=== PATIENT | male | born 1960 | race African-American/Black ===

== ENCOUNTER 2025-05-31 01:05 | Emergency (ER) | payer OTHER ==
[2025-05-31] MEDS ORDERED: diphenhydrAMINE 50 MG/ML VIAL ONE (02:02)
[2025-05-31] MEDS ORDERED: Metoclopramide HCl 10 MG (2 mL) VIAL ONE (02:03)
[2025-05-31 02:08] LABS: #Basophils 0.08 10x3/uL (0.0-0.2); #Eosinophils 0.37 10x3/uL (0.0-0.5); #Monocytes 0.91 10x3/uL (0.0-1.1); #Neutrophils 6.28 10x3/uL (1.5-8.4); %Basophils 0.7 % (0.0-2.0); %Eosinophils 3.4 % (0.0-6.0); %Lymphocytes 28.7 % (18.0-47.0); %Monocytes 8.5 % (0.0-10.0); %Neutrophils 58.5 % (40.0-75.0); Hematocrit 40.2 % (38.8-50.0); Hemoglobin 14.3 g/dL (13.5-17.5); Mean Corpuscular Hemoglobin 30.6 pg (27.0-33.0); Mean Corpuscular Volume 85.9 fL (81.2-95.1); Platelet Count 210 10x3/uL (150-450); Red Blood Cell (RBC) Count 4.68 10x6/uL (4.32-5.72); White Blood Cell (WBC) Count 10.74 10x3/uL (3.5-10.5)
[2025-05-31 02:30] LABS: ALT (SGPT) 18 U/L (Less than 45); AST (SGOT) 23 U/L (11-34); Albumin 4.2 g/dL (3.1-4.5); Alkaline Phosphatase 65 U/L (40-110); Anion Gap 12 mmol/L (10-20); BUN (Urea Nitrogen) 25 mg/dL (8.4-25.7); Bilirubin, Total 0.6 mg/dL (0.3-1.2); Calc. Creatinine Clearance 0 mL/min (70-130); Calcium 9.7 mg/dL (7.8-10.44); Carbon Dioxide 28 mmol/L (23-31); Chloride 100 mmol/L (98-107); Globulin 3.5 g/dL (2.4-3.5); Glucose 116 mg/dL (80-115); Lipase 83 U/L (8-78); Potassium 3.1 mmol/L (3.5-5.1); Sodium 137 mmol/L (136-145)
== END 2025-05-31 03:02 | disposition home or self-care (01) ==
LOC: CSHERS 01:05
DX: I12.9 Hypertensive chronic kidney disease with stage 1 through stage 4 chronic kidney disease, or unspecified chronic kidney disease (principal); N18.9 Chronic kidney disease, unspecified; N17.9 Acute kidney failure, unspecified; R11.0 Nausea; H93.13 Tinnitus, bilateral
CPT/HCPCS: 80053; 83690; 85025; 87428; 96374; 96375; J1200; J2765